=== PATIENT | male | born 1980 | race Caucasian/White ===

== ENCOUNTER 2016-05-31 07:47 | Outpatient (CLI) | payer OTHER ==
[2016-05-31] MEDS ORDERED: NACL ONE (07:59)
--- NOTE | 2016-05-31 10:13 | Cat Scan Report ---
CT SINUSES WITH AND WITHOUT CONTRAST INDICATION: Damage to right nasal turbinate. COMPARISON: None similar at this institution. FINDINGS: Anterior paranasal sinuses CT performed before after IV contrast. Axial, sagittal and coronal CT reconstructions demonstrate moderate rightward nasal septal deviation anteriorly with subtle adjacent debris/soft tissue prominence as on axial series 4, images 28-37 anterior to the inferior turbinate. As on coronal series 100, images 22-28 and on axial series 4, images 19-23, approximately 1.2 x 1 cm nonenhancing soft tissue noted arising from and extending inferior to the right lower turbinate. The superior and middle turbinates appear within normal limits. Patent ostiomeatal complexes. Approximately 3 mm leftward nasal septal spur, axial images 37, series 4. Mild right and slight left maxillary sinus mucosal thickening. Mild right frontal and slight left frontoethmoid sinus mucosal thickening also noted. Minimal left sphenoid sinus mucosal thickening anteriorly. Clear remainder imaged paranasal sinuses and temporal bone air cells. Approximately 5 mm maxillary left medial incisor periapical cyst. Right maxillary molar dental disease/caries also not excluded. Possible old nasal bone trauma/fracture on the left. Unremarkable eye globes. Normal imaged intracranial appearance. CONCLUSION: 1. Approximately 1.2 x 1 cm nonspecific soft tissue arising from the right lower turbinate and extending inferiorly, as described. Rightward nasal septal deviation anteriorly with some adjacent debris/soft tissue prominence also noted, as described. Though no suspicious abnormal enhancement noted, ENT consultation/direct visualization would help further characterize, if so appropriate. 2. Various other findings, including mild sinusitis and dental disease, amongst others. Thank you for the opportunity to participate in this patient's care.
== END 2016-05-31 07:48 | disposition home or self-care (01) ==
LOC: CT 07:47
PROVIDERS: ATTEND Family Medicine
DX: S02.2XXA Fracture of nasal bones, initial encounter for closed fracture (principal); J34.2 Deviated nasal septum; J32.9 Chronic sinusitis, unspecified; J34.1 Cyst and mucocele of nose and nasal sinus; X58.XXXA Exposure to other specified factors, initial encounter; Y93.89 Activity, other specified; Y92.89 Other specified places as the place of occurrence of the external cause; Y99.8 Other external cause status
CPT/HCPCS: 70488; Q9967